=== PATIENT | male | born 1955 | race Caucasian/White ===

== ENCOUNTER → 2020-06-15 06:55 | Outpatient (CLI) | payer OTHER, SELFPAY ==
[2020-06-15 17:21] LABS: SARS-CoV-2 RNA PCR Negative
== END ==
PROVIDERS: PCP Internal Medicine; Visit Provider Internal Medicine
DX: Z20.822 Contact with and (suspected) exposure to COVID-19 (principal); J06.9 Acute upper respiratory infection, unspecified; R05 Cough
CPT/HCPCS: C9803; U0003; U0005

== ENCOUNTER 2020-10-18 06:43 | Outpatient (CLI) | payer OTHER, SELFPAY ==
[2020-10-18 07:43] LABS: Basophils Absolute Auto 0.1 K/mm3 (0.0-0.1); Basophils Percent Auto 0.7 % (0.2-1.2); Eosinophils Absolute Auto 0.1 K/mm3 (0-0.3); Eosinophils Percent Auto 1.9 % (0-4.4); Hematocrit 46.6 % (42.0-52.0); Hemoglobin 16.5 g/dL (14.0-18.0); Immature Granulocyte Absolute 0.03 K/mm3 (0.00-0.031); Immature Granulocyte Percent A 0.4 % (0-0.5); Lymphocytes Absolute Auto 1.11 K/mm3 (0.9-3.2); Lymphocytes Percent Auto 15.5 % (18.3-44.2); Mean Corpuscular HGB Conc 35.4 g/dl (32-36); Mean Corpuscular Hemoglobin 31.4 pg (26-34); Mean Corpuscular Volume 88.8 fl (80-100); Mean Platelet Volume 10.2 fl (7.4-10.4); Monocytes Absolute Auto 0.5 K/mm3 (0.1-0.6); Monocytes Percent Auto 6.4 % (2.6-8.5); Neutrophils Absolute Auto 5.4 K/mm3 (1.3-6.7); Neutrophils Percent Auto 75.1 % (45.5-73.1); Platelet Count Result 175 k/mm3 (150-375); Red Blood Count 5.25 M/mm3 (4.6-6.20); Red Cell Distribution Width 12.2 % (11.5-14.5); White Blood Count 7.2 K/mm3 (4.5-10.0)
[2020-10-18 08:13] LABS: Alanine Aminotransferase 64 U/L (4-50); Albumin Level 4.6 g/dL (3.5-5.1); Alkaline Phosphatase 50 U/L (38-126); Anion Gap 10 mmol/L (8-16); Aspartate Amino Transferase 51 U/L (17-59); Bilirubin,Total 1.1 mg/dL (0.2-1.3); Blood Urea Nitrogen 12 mg/dL (9-20); Calcium 9.5 mg/dL (8.4-10.2); Carbon Dioxide 31 mmol/L (22-30); Chloride 100 mmol/L (98-107); Cholesterol 154 mg/dL (0-200); Estimated Glomerular Filt Rate > 60; Glucose 135 mg/dL (75-110); HDL Direct 25 mg/dL; Magnesium 1.8 mg/dL (1.6-2.3); Potassium 3.1 mmol/L (3.4-5.0); Sodium 141 mmol/L (137-145); Triglycerides 121 mg/dL (<150)
[2020-10-18 08:26] LABS: LDL Cholesterol Direct 94 mg/dL
[2020-10-18 08:47] LABS: Prostate Specific Antigen 1.2 ng/mL (< OR = 4.0)
[2020-10-18 09:43] LABS: Free T4 Free Thyroxine 1.03 ng/mL (0.78-2.19)
== END 2020-10-18 06:44 | disposition home or self-care (01) ==
PROVIDERS: PCP Internal Medicine; Visit Provider Internal Medicine
DX: K21.9 Gastro-esophageal reflux disease without esophagitis (principal); I10 Essential (primary) hypertension; Z12.5 Encounter for screening for malignant neoplasm of prostate
CPT/HCPCS: 36415; 80053; 80061; 82607; 83735; 84153; 84439; 84443; 85025; G0103

== ENCOUNTER 2021-10-30 06:41 | Outpatient (CLI) | payer OTHER, SELFPAY ==
[2021-10-30 07:22] LABS: Basophils Percent Auto 0.5 % (0.2-1.2); Eosinophils Absolute Auto 0.1 K/mm3 (0-0.3); Eosinophils Percent Auto 1.6 % (0-4.4); Hematocrit 41.4 % (42.0-52.0); Hemoglobin 14.3 g/dL (14.0-18.0); Immature Granulocyte Absolute 0.03 K/mm3 (0.00-0.031); Immature Granulocyte Percent A 0.4 % (0-0.5); Lymphocytes Absolute Auto 0.86 K/mm3 (0.9-3.2); Lymphocytes Percent Auto 11.7 % (18.3-44.2); Mean Corpuscular HGB Conc 34.5 g/dl (32-36); Mean Corpuscular Hemoglobin 30.6 pg (26-34); Mean Corpuscular Volume 88.7 fl (80-100); Mean Platelet Volume 10.7 fl (7.4-10.4); Monocytes Absolute Auto 0.4 K/mm3 (0.1-0.6); Monocytes Percent Auto 5.2 % (2.6-8.5); Neutrophils Absolute Auto 5.9 K/mm3 (1.3-6.7); Neutrophils Percent Auto 80.6 % (45.5-73.1); Platelet Count Result 172 k/mm3 (150-375); Red Blood Count 4.67 M/mm3 (4.6-6.20); Red Cell Distribution Width 12.8 % (11.5-14.5); White Blood Count 7.3 K/mm3 (4.5-10.0)
[2021-10-30 07:44] LABS: LDL Cholesterol Direct 83 mg/dL
[2021-10-30 07:57] LABS: Alanine Aminotransferase 58 U/L (6-50); Albumin Level 4.5 g/dL (3.5-5.1); Alkaline Phosphatase 67 U/L (38-126); Anion Gap 8 mmol/L (8-16); Aspartate Amino Transferase 69 U/L (17-59); Bilirubin,Total 0.9 mg/dL (0.2-1.3); Blood Urea Nitrogen 10 mg/dL (9-20); Calcium 9.7 mg/dL (8.4-10.2); Carbon Dioxide 35 mmol/L (22-30); Chloride 98 mmol/L (98-107); Cholesterol 138 mg/dL (0-200); Estimated Glomerular Filt Rate > 60; Glucose 146 mg/dL (65-110); HDL Direct 24 mg/dL; Magnesium 1.5 mg/dL (1.6-2.3); Potassium 3.5 mmol/L (3.4-5.0); Sodium 141 mmol/L (137-145); Triglycerides 143 mg/dL (<150)
[2021-10-30 08:05] LABS: Prostate Specific Antigen 1.2 ng/mL (< OR = 4.0)
[2021-10-30 08:27] LABS: Free T4 Free Thyroxine 1.26 ng/mL (0.78-2.19)
== END 2021-10-30 06:42 | disposition home or self-care (01) ==
LOC: ANHLAB 06:44
PROVIDERS: PCP Internal Medicine; Visit Provider Internal Medicine
DX: I10 Essential (primary) hypertension (principal); K21.9 Gastro-esophageal reflux disease without esophagitis; N42.9 Disorder of prostate, unspecified
CPT/HCPCS: 36415; 80053; 80061; 82607; 83735; 84153; 84439; 84443; 85025

== ENCOUNTER 2021-11-14 10:13 | Outpatient (CLI) | payer OTHER, SELFPAY ==
[2021-11-14 10:36] LABS: Basophils Percent Auto 0.3 % (0.2-1.2); Eosinophils Absolute Auto 0.1 K/mm3 (0-0.3); Eosinophils Percent Auto 0.7 % (0-4.4); Hematocrit 44.2 % (42.0-52.0); Hemoglobin 15.2 g/dL (14.0-18.0); Immature Granulocyte Absolute 0.05 K/mm3 (0.00-0.031); Immature Granulocyte Percent A 0.6 % (0-0.5); Lymphocytes Absolute Auto 0.74 K/mm3 (0.9-3.2); Lymphocytes Percent Auto 8.6 % (18.3-44.2); Mean Corpuscular HGB Conc 34.4 g/dl (32-36); Mean Corpuscular Hemoglobin 30.6 pg (26-34); Mean Corpuscular Volume 88.9 fl (80-100); Monocytes Absolute Auto 0.5 K/mm3 (0.1-0.6); Monocytes Percent Auto 5.3 % (2.6-8.5); Neutrophils Absolute Auto 7.3 K/mm3 (1.3-6.7); Neutrophils Percent Auto 84.5 % (45.5-73.1); Platelet Count Result 186 k/mm3 (150-375); Red Blood Count 4.97 M/mm3 (4.6-6.20); Red Cell Distribution Width 12.9 % (11.5-14.5); White Blood Count 8.6 K/mm3 (4.5-10.0)
[2021-11-14 10:46] LABS: Alanine Aminotransferase 119 U/L (6-50); Albumin Level 4.7 g/dL (3.5-5.1); Alkaline Phosphatase 106 U/L (38-126); Amylase 70 U/L (30-110); Anion Gap 10 mmol/L (8-16); Aspartate Amino Transferase 105 U/L (17-59); Blood Urea Nitrogen 11 mg/dL (9-20); Calcium 9.8 mg/dL (8.4-10.2); Carbon Dioxide 32 mmol/L (22-30); Chloride 94 mmol/L (98-107); Estimated Glomerular Filt Rate > 60; Glucose 183 mg/dL (65-110); Lipase 201 U/L (23-300); Potassium 3.5 mmol/L (3.4-5.0); Sodium 136 mmol/L (137-145)
[2021-11-14 10:51] LABS: Hemoglobin A1C 6.3 % (<5.7)
== END 2021-11-14 10:14 | disposition home or self-care (01) ==
LOC: ANHLAB 10:15
PROVIDERS: PCP Internal Medicine; Visit Provider Internal Medicine
DX: R73.09 Other abnormal glucose (principal); R10.9 Unspecified abdominal pain
CPT/HCPCS: 36415; 80053; 82150; 83036; 83690; 85025

== ENCOUNTER 2021-11-27 08:19 | Outpatient (CLI) | payer OTHER, SELFPAY ==
--- NOTE | ~2021-11-27 | CT_ITS ---
EXAMINATION: CT abdomen pelvis wo con DATE: 11/27/2021 08:39 INDICATION: Diffuse abdominal pain TECHNIQUE: Computed tomography (CT) of the abdomen and pelvis was performed without intravenous contr ast. The dose-length product (DLP) was 864.32 mGy-cm. Automated exposure control and iterative recons truction technique were employed. COMPARISON: None FINDINGS: The lung bases are clear. The heart size is normal. Calcified coronary artery atheroscleros is is noted. Although limited by the absence of intravenous contrast, there appear to be innumerable subtle hypoattenuating lesions throughout the liver. There is questionable wall thickening of the sto mach. The mildly enlarged spleen measures up to 15.8 cm. A stone is present in the gallbladder. There is mild gallbladder wall thickening. The pancreas and adrenal glands are normal. The kidneys are unr emarkable. There is calcified atherosclerosis of the aorta and many of the other arteries. There is r etroperitoneal, gastrohepatic ligament, and periportal lymphadenopathy. The appendix is normal. There is no free intraperitoneal gas or evidence of bowel obstruction. There is a small umbilical hernia c ontaining fat. There is sclerosis in the superior aspect of the S1 vertebral body. IMPRESSION: 1. Innumerable subtle hypoattenuating lesions of the liver concerning for metastatic disease of uncle ar etiology. 2. Retroperitoneal and periportal lymphadenopathy, also consistent with metastatic disease. 3. Cholelithiasis and gallbladder wall thickening, possibly reflecting chronic cholecystitis. Correla te for right upper quadrant tenderness. 4. Possible wall thickening of the stomach which could be due to incomplete distention versus maligna ncy. Reviewed, dictated and finalized at location B. IMPRESSION: 1. Innumerable subtle hypoattenuating lesions of the liver concerning for metas tatic disease of unclear etiology. 2. Retroperitoneal and periportal lymphadenopathy, also consistent with metasta tic disease. 3. Cholelithiasis and gallbladder wall thickening, possibly reflecting chronic cholecystitis. Correlate for right upper quadrant tenderness. 4. Possible wall thickening of the stomach which could be due to incomplete dis tention versus malignancy.
== END 2021-11-27 08:20 | disposition home or self-care (01) ==
PROVIDERS: PCP Internal Medicine; Visit Provider Internal Medicine
DX: R10.9 Unspecified abdominal pain (principal); K80.20 Calculus of gallbladder without cholecystitis without obstruction
CPT/HCPCS: 74176

== ENCOUNTER 2021-11-30 08:06 | Outpatient (CLI) | payer OTHER, SELFPAY ==
[2021-12-03 05:49] LABS: CA 19-9 38 U/mL (<34)
== END 2021-11-30 08:07 | disposition home or self-care (01) ==
LOC: ANHLAB 08:08
PROVIDERS: PCP Internal Medicine; Visit Provider Internal Medicine
DX: R16.0 Hepatomegaly, not elsewhere classified (principal)
CPT/HCPCS: 36415; 82378; 86301

== ENCOUNTER 2021-12-14 09:26 | Outpatient (CLI) | payer MEDICARE, OTHER, SELFPAY ==
--- NOTE | ~2021-12-14 | PE_ITS ---
EXAMINATION: PET skull to mid thigh DATE: 12/14/2021 11:04 INDICATION: Liver cell carcinoma TECHNIQUE: Blood glucose level was 110 mg/dL. 9.102 mCi of 18-fluorodeoxyglucose (18-FDG) was adminis tered i.v. Low dose computed tomography (CT) images were acquired from the base of the brain to the p roximal thighs for attenuation correction and anatomic localization. Positron emission tomography (PE T) images were acquired in the same distribution beginning 71 minutes after injection. Images includi ng fused PET/CT images were reconstructed in axial, coronal, and sagittal planes. Automated exposure control technique was employed. The dose-length product was 949.19mGy-cm. COMPARISON: CT abdomen pelvis dated 11/27/2021 FINDINGS: Musculoskeletal: There are numerous foci of increased FDG uptake scattered throughout the visualized axial and appendi cular skeleton, many of which are occult on CT but also many with associated subtle sclerosis or with soft tissue density replacing the normal fat attenuation of the marrow. 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 Head/neck: There is symmetric increased activity in the oral cavity, laryngeal muscles and ocular muscles withou t CT correlate, likely physiologic. No pathologically enlarged cervical lymphadenopathy or nonosseous suspicious foci of increased FDG uptake in the visualized head or neck. Chest: Multiple pulmonary nodules clustered in the central suprahilar region of the right upper lobe, the la rgest measuring 6 mm and the remainder <3 mm which are without evident FDG uptake. . Is a slightly mo re caudal FDG avid nodule situated amongst and unable to be distinguished from the branching right up per lobar bronchovascular structures in the right suprahilar region with maximal SUV of 9.0. Multiple enlarged and FDG avid mediastinal lymph nodes consistent with metastatic disease. For reference the largest and most caudal right paratracheal lymph node measures 3.2 x 2.2 cm with maximal SUV of 13.3. No pneumonia, pulmonary edema or other pulmonary infiltrates. No pleural effusion. Heart size is nor mal. Atherosclerotic coronary artery calcification. No pericardial effusion. Thoracic aorta is normal in caliber. Abdomen/pelvis/proximal thighs: Heterogeneous attenuation of the liver with multiple hypodense and FDG avid nodules scattered diffuse ly throughout the liver resulting in large regions of confluent appearing increased FDG uptake with m aximal SUV in the liver of 18.8. Physiologic renal accumulation and excretion of FDG activity in the kidneys, bladder and along portions of ureters. Sludge and gallstone within the otherwise normal-appe aring gallbladder with no wall thickening or pericholecystic inflammatory stranding to suggest acute cholecystitis. Borderline splenomegaly measuring 13.4 cm in maximal length. No splenic lesions or abn ormal splenic FDG uptake. Pancreas and bilateral prostatomegaly. Adrenal glands are normal. Minimal u ptake scattered throughout the bowels without radiologic correlate, also likely physiologic. Normal a ppendix. Additional enlarged and FDG avid likely metastatic lymphadenopathy in the upper abdomen incl uding gastrohepatic, periportal, portacaval and upper abdominal periaortic lymph nodes. For reference approximately 3.6 x 3.2 cm periportal lymph node with maximal SUV of 11.7. IMPRESSION: 1. Widespread metastatic disease of indeterminate primary including numerous FDG avid bone lesions th roughout the axial and appendicular skeleton, numerous FDG avid lesions throughout the liver and enla rged and FDG avid mediastinal, right hilar and upper abdominal lymph nodes. If this is not been previ ously biopsied to determine the origin of the primary malignancy would recommend ultrasound-guided bi opsy of one of the hepatic nodules. 2. A few small nodules clustered centrally in the right upper lobe which could be infec
[2021-12-14 09:41] LABS: Glucose Point of Care 110 mg/dl (65-105)
== END 2021-12-14 09:27 | disposition home or self-care (01) ==
LOC: ANHIMG 09:28
PROVIDERS: PCP Internal Medicine; Visit Provider Internal Medicine
DX: C78.7 Secondary malignant neoplasm of liver and intrahepatic bile duct (principal); K80.20 Calculus of gallbladder without cholecystitis without obstruction; R91.8 Other nonspecific abnormal finding of lung field
CPT/HCPCS: 78815; A9552

== ENCOUNTER 2022-01-06 22:08 | Emergency (ER) | payer MEDICARE, OTHER, SELFPAY ==
--- NOTE | ~2022-01-06 | XR_ITS ---
EXAMINATION: XR chest 1V portable DATE: 01/07/2022 01:06 INDICATION: Fever TECHNIQUE: AP view of the chest was obtained. COMPARISON: None FINDINGS: The lungs are clear with no focal airspace opacities, pulmonary edema, pleural effusion or pneumothor ax. The cardiomediastinal silhouette is normal. Visualized bones and soft tissues are unremarkable. IMPRESSION: 1. No acute cardiopulmonary disease. Reviewed, dictated and finalized at location A.
[2022-01-06 22:54] VITALS: BP 140/48; PULSE 127; RESP 17; TEMP 37.7; O2SAT 94
[2022-01-06 23:19] LABS: Alanine Aminotransferase 86 U/L (6-50); Albumin Level 3.5 g/dL (3.5-5.1); Alkaline Phosphatase 287 U/L (38-126); Anion Gap 4 mmol/L (8-16); Aspartate Amino Transferase 101 U/L (17-59); Bilirubin,Total 3.1 mg/dL (0.2-1.3); Blood Urea Nitrogen 15 mg/dL (9-20); Calcium 8.4 mg/dL (8.4-10.2); Carbon Dioxide 29 mmol/L (22-30); Chloride 101 mmol/L (98-107); Estimated Glomerular Filt Rate > 60; Glucose 166 mg/dL (65-110); Potassium 3.9 mmol/L (3.4-5.0); Sodium 134 mmol/L (137-145)
[2022-01-07] VITALS (7 sets, daily range): BP systolic 115–146; BP diastolic 40–66; PULSE 96–111; RESP 16–22; TEMP 37–37.2; O2SAT 91–93
--- NOTE | 2022-01-07 00:21 | ED.GENADULT ---
HPI - General Adult General Chief complaint: Fever Stated complaint: Fever, initial chemo on Saturday Time Seen by Provider: 01/07/22 00:10 Source: RN notes reviewed History of Present Illness HPI narrative: Patient presents emergency department from home for fever. 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 as well as the abdomen states he is followed at [facility] had his first chemo treatments last Saturday and Saturday he was told that if he had a temperature greater than 101.5 to call his oncologist with his fever this evening called oncology and they recommended come to the ER for further evaluation states he has had a mild cough this been nonproductive but states that is unchanged she denies any rhinorrhea sore throat nausea vomiting or diarrhea he states he has chronic abdominal pain from his meds but denies any change in his abdominal pain patient did not take any medication for the fever at home Related Data Allergies Allergy/AdvReac Type Severity Reaction Status Date / Time No Known Allergies Allergy Verified 01/06/22 22:58 Review of Systems Review of Systems: Gen.: See HPI Eyes: Denies eye pain or visual change ENT: Denies congestion Respiratory: Denies shortness of breath or cough CV: Denies chest pain or palpitations GI: Reports chronic abdominal pain, denies nausea, emesis or diarrhea Musculoskeletal: Denies back pain or muscle pain Neuro: Denies numbness, tingling, weakness or focal weakness Skin: Denies rash Except as documented, all other systems reviewed and negative [facility] Past Medical History Medical History (Updated 01/07/22 @ 01:43 by Glen Ford DO) Small cell lung cancer Social History Social History (Updated 01/07/22 @ 00:22 by Glen Ford DO) Smoking status: Never smoker Exam Narrative: APPEARANCE: No acute distress, nontoxic, resting in bed EYES: EOMI HEENT: Normocephalic, atraumatic, OMM RESPIRATORY: No respiratory distress Clear to auscultation bilaterally with no rhonchi wheezing or rales. CARDIOVASCULAR: Tachycardic and regular without murmurs rubs or gallops. ABDOMINAL: Soft, nontender, nondistended, no rebound or guarding MUSCULOSKELETAl: Moves all extremities. No clubbing, cyanosis or edema. NEURO: Awake and alert. Following commands, speech normal, no focal deficits SKIN:: Warm, dry. No rashes lesions or abrasions PSYCHIATRIC: Normal affect/mood, Course Course Emergency Course: Patient is followed by Dr. Lau at [facility] Called and discussed with Dr. Perkins at [facility] oncology at this time recommends patient be started on cefepime 2 g every 8 hours recommends patient be transfused 1 unit of PRBCs and patient is excepted to Dr. Cedeno at [facility] Vital Signs Vital signs: Vital Signs Temperature 99.9 F H 01/06/22 22:54 Pulse Rate 127 H 01/06/22 22:54 Respiratory Rate 17 01/06/22 22:54 Blood Pressure 140/48 L 01/06/22 22:54 Pulse Oximetry 94 01/06/22 22:54 Oxygen Delivery Room Air 01/06/22 22:54 Temperature 98.9 F 01/07/22 04:55 Pulse Rate 96 01/07/22 04:55 Respiratory Rate 20 01/07/22 04:55 Blood Pressure 130/56 L 01/07/22 04:55 Pulse Oximetry 93 01/07/22 04:55 Oxygen Delivery Room Air 01/06/22 22:54 Medical Decision Making Vital Signs Vital Signs: Vital Signs Temperature 99.9 F H 01/06/22 22:54 Pulse Rate 127 H 01/06/22 22:54 Respiratory Rate 17 01/06/22 22:54 Blood Pressure 140/48 L 01/06/22 22:54 Pulse Oximetry 94 01/06/22 22:54 Oxygen Delivery Room Air 01/06/22 22:54 Temperature 98.9 F 01/07/22 04:55 Pulse Rate 96 01/07/22 04:55 Respiratory Rate 20 01/07/22 04:55 Blood Pressure 130/56 L 01/07/22 04:55 Pulse Oximetry 93 01/07/22 04:55 Oxygen Delivery Room Air 01/06/22 22:54 Lab Data Result diagrams: 01/07/22 00:38
--- NOTE | 2022-01-07 00:23 | ECG_ITS ---
Measurements Intervals [place] Rate: 110 P: 65 AK: 141 QRS: 76 QRSD: 90 T: 52 QT: 322 QTc: 437 Interpretive Statements SINUS TACHYCARDIA ABNORMAL RHYTHM ECG NO PREVIOUS ECG AVAILABLE FOR COMPARISON Electronically Signed On 01-07-2022 17:45:51 CDT by Sarah Timmons M.D.
[2022-01-07] MEDS: SODIUM CHLORIDE 0.9% IV 1,000 ML 999 ML IV CONT (00:36)
[2022-01-07 00:48] LABS: Appearance Urine Clear (Clear); Bilirubin Urine 2+ (Negative); Blood Urine Negative (Negative); Color Urine Yellow (Yellow); Glucose Urine UA Negative (Negative); Ketones Urine Negative (Negative); Leukocyte Esterase Ur Negative LEU/UL (Negative); Nitrate Urine Negative (Negative); Protein Urine 1+ mg/dL (Negative); Specific Grav Ur 1.015 (1.001-1.035); pH Urine 5.5 (5.0-9.0)
[2022-01-07 00:49] LABS: Basophils Percent Auto 1.9 % (0.2-1.2); Hematocrit 22.1 % (42.0-52.0); Hemoglobin 7.2 g/dL (14.0-18.0); Immature Platelet Fraction Pct 13.2 % (0.9-11.2); Lymphocytes Absolute Auto 0.27 K/mm3 (0.9-3.2); Lymphocytes Percent Auto 50.9 % (18.3-44.2); Mean Corpuscular HGB Conc 32.6 g/dl (32-36); Mean Corpuscular Hemoglobin 30.3 pg (26-34); Mean Corpuscular Volume 92.9 fl (80-100); Mean Platelet Volume 12.5 fl (7.4-10.4); Monocytes Absolute Auto 0.1 K/mm3 (0.1-0.6); Monocytes Percent Auto 11.3 % (2.6-8.5); Neutrophils Absolute Auto 0.2 K/mm3 (1.3-6.7); Neutrophils Percent Auto 35.9 % (45.5-73.1); Red Blood Count 2.38 M/mm3 (4.6-6.20); Red Cell Distribution Width 14.4 % (11.5-14.5)
[2022-01-07 00:53] LABS: Bacteria Urine Trace /hpf; RBC Urine 0-2 /hpf (0-2); WBC Urine 0-3 /hpf
[2022-01-07 00:56] LABS: White Blood Count 0.5 K/mm3 (4.5-10.0)
[2022-01-07 00:57] LABS: Platelet Count Result 19 k/mm3 (150-375)
[2022-01-07 00:59] LABS: Lactic Acid Reflex 2.2 mmol/L (0.7-2.0)
[2022-01-07 01:00] LABS: Platelet Estimate Decreased (Adequate)
[2022-01-07 01:03] LABS: Add Urine Microscopic? YES
[2022-01-07 01:28] LABS: Influenza A QL RT-PCR Negative (Negative); Influenza B QL RT-PCR Negative (Negative); SARS-CoV-2 RNA PCR Negative
[2022-01-07 03:45] LABS: Reflex Lactic Acid Yes or No Add Lactic
[2022-01-07] MEDS: TUBING, BLOOD PLUM PUMP TUBING 1 EACH XX (04:33)
[2022-01-07] MEDS: SODIUM CHLORIDE 0.9% IV 250 ML 30 ML IV CONT (04:33)
== END 2022-01-07 05:45 | disposition short-term general hospital (02) ==
PROVIDERS: Emergency Provider Emergency Medicine; PCP Internal Medicine
DX: D61.818 Other pancytopenia (principal); R50.9 Fever, unspecified; C34.90 Malignant neoplasm of unspecified part of unspecified bronchus or lung; C78.7 Secondary malignant neoplasm of liver and intrahepatic bile duct; C79.31 Secondary malignant neoplasm of brain; C79.51 Secondary malignant neoplasm of bone; Z20.822 Contact with and (suspected) exposure to COVID-19; Z79.899 Other long term (current) drug therapy; R00.0 Tachycardia, unspecified
CPT/HCPCS: 36415; 36430; 71045; 80053; 81001; 83605; 85025; 85055; 86850; 86900; 86901; 86920; 87040; 87502; 93005; 96361; 96365; 99285; C9803; J0692; J7030; J7050; P9016; U0003; U0005